=== PATIENT | male | born 1965 | race Caucasian/White ===

== ENCOUNTER → 2021-03-28 | Outpatient (CLI) | payer OTHER ==
--- NOTE | 2021-04-01 09:25 | CT ---
EXAMINATION TYPE: CT soft tissue neck wo con, CT neck chest w con DATE OF EXAM: 03/28/2021 HISTORY: Enlarged lymph nodes, left submandibular. COMPARISON: None CT DLP: 558.7 (accession [id number]), 1133.1 (accession [id number]) mGycm. Automated Exposure Control fo r Dose Reduction was Utilized. TECHNIQUE: CT scan of the neck is performed with IV Contrast, patient injected with 100 mL of Isovue M300, axial images are obtained, coronal and sagittal reformatted images are reviewed. FINDINGS: NECK: Airway: No gross abnormality seen. Parotid/submandibular glands: There is asymmetric nodular appearance of obstruction of the left subma ndibular gland measuring up to 1.9 x 2.2 cm, however this demonstrates similar density to the rest of the submandibular gland and may not represent discrete mass. Carotid/Vascular Structures: Patent. Lymph nodes: There is a necrotic lymph node posterior to the left angle of the mandible measuring 2.1 x 1.8 x 1.7 cm (7:55). There is also an adjacent enlarged lymph node immediately posterior to the ne crotic node measuring 1.3 x 0.9 cm (7:56). There is a right cervical lymph node anterior to the level of the carotid bifurcation measuring 1.5 x 1.6 cm (7:51). Right supraclavicular lymph node posterior to the internal jugular vein measures 1.7 x 1.2 cm (7:30). Osseous Structures: Degenerative changes of the cervical spine. No aggressive osseous destructive les ions appreciated. Other: Homogenous thyroid gland. CHEST: Soft tissue/mediastinum: No axillary, mediastinal, or hilar lymphadenopathy. Cardiovascular. Cardiac size normal. No pericardial effusion. Thoracic aorta normal in caliber. Lungs: Tracheobronchial tree is patent. No pleural effusion or pneumothorax. Mild centrilobular emphy sema at the apices. No pulmonary mass or suspicious pulmonary nodule. No acute focal airspace opacity . Upper abdomen: Hepatic cysts. Likely pancreatic calcifications which may represent sequela of chronic pancreatitis. Osseous structures: Degenerative changes of the thoracic spine. No aggressive osseous destructive les ions appreciated. IMPRESSION: 1. Necrotic lymph node posterior to the angle of the left mandible measuring 2.1 cm. Nonnecrotic kenny ateral cervical and right supraclavicular lymphadenopathy. Findings likely represent neoplastic proce ss. 2. Asymmetric nodular appearance of the left inferior submandibular gland without discrete mass. Fin dings may represent asymmetric normal submandibular tissue although could be further evaluated with u ltrasound.
== END | disposition home or self-care (01) ==
LOC: RADCTMAIN 17:40
PROVIDERS: ATTEND Internal Medicine Hematology & Oncology
DX: R91.8 Other nonspecific abnormal finding of lung field (principal); R59.0 Localized enlarged lymph nodes
CPT/HCPCS: 70490; 70491; 71260; Q9967

== ENCOUNTER → 2021-05-02 | Outpatient (CLI) | payer OTHER ==
--- NOTE | 2021-05-03 12:23 | PE ---
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 TECHNIQUE: Following the intravenous administration of 9.22 mCi of F-18 FDG, whole body images are p erformed from the skull base to the midthigh. Images are reviewed on the computer in the coronal, ax ial, and sagittal planes. Reconstructed rotating images are created on independent workstation and r eviewed on the computer. A localization and attenuation correction CT is performed in conjunction w ith the PET scan. Blood glucose level equals 99 SCAN: Initial Scan FINDINGS: SKULL BASE AND NECK: No suspicious hypermetabolic uptake inferior left submandibular gland. Abnormal peripheral hypermetabolic lesion with central necrosis posterior left lateral tongue base le anahy 2.6 x 2.6 cm axial image 43, max SUV is 4.97. There is abnormal hypermetabolic right-sided submandibular 1.7 cm mass axial image 46, max SUV is 6.1 1 corresponding to lesion just anterior to the jugular and carotid vessels. Mild uptake posterior tongue base bilaterally slightly more prominent on the left axial image 37, Max SUV is 3.85. Findings should be correlated with direct visualization. CHEST, MEDIASTINUM, AND HILAR REGION: No areas of abnormal hypermetabolic uptake. ABDOMEN AND PELVIS: Normal excretion. No areas of abnormal hypermetabolic uptake. OSSEOUS STRUCTURES: No areas of abnormal hypermetabolic uptake. OTHER CT: Mild to moderate underlying emphysematous changes redemonstrated. Liver is diffusely low-density suggesting diffuse fatty infiltration. Laminectomy defects with spinou s process resection lower lumbar spine. Facet arthropathy. IMPRESSION: Bilateral abnormal neck adenopathy confirmed. Possible subtle lesion left posterior tongu e base, correlate clinically with direct visualization. No additional hypermetabolic lesions to sugge st primary neoplasm or metastatic disease identified
== END | disposition home or self-care (01) ==
LOC: RADPETMAIN 11:19
PROVIDERS: ATTEND Otolaryngology
DX: C80.1 Malignant (primary) neoplasm, unspecified (principal); R59.0 Localized enlarged lymph nodes
CPT/HCPCS: 78815; A9552

== ENCOUNTER → 2021-05-02 | Outpatient (CLI) | payer OTHER | END | disposition home or self-care (01) | LOC: LABWHC1 14:35 | PROVIDERS: ATTEND Otolaryngology | DX: Z01.812 Encounter for preprocedural laboratory examination (principal); Z20.822 Contact with and (suspected) exposure to COVID-19 | CPT/HCPCS: U0003; C9803; U0005 ==

== ENCOUNTER → 2021-05-24 | Outpatient (CLI) | payer OTHER | END | disposition home or self-care (01) | LOC: LABWHC1 09:42 | PROVIDERS: ATTEND Otolaryngology | DX: Z01.812 Encounter for preprocedural laboratory examination (principal); U07.1 COVID-19 | CPT/HCPCS: U0003; U0005 ==

== ENCOUNTER → 2021-10-18 | Outpatient (CLI) | payer MEDICARE ==
--- NOTE | 2021-10-21 09:36 | PE ---
Nuclear medicine PET/CT HISTORY: C 76.0, subsequent Patient received 7.3 mCi F-18 FDG intravenously and delayed scanning was performed from the skull bas e to the mid thighs. A localization and attenuation correction CT scan was performed. Small field-of- view images obtained through the head and neck. Correlation to prior nuclear medicine PET/CT 05/02/2021 Average mediastinal uptake SUV 2.2, average liver uptake approximately SUV 2.9 Head and neck: There is no suspicious uptake. No evident adenopathy. No suspicious soft tissue mass. Subcutaneous soft tissues show some mild increased attenuation possibly due to posttreatment changes, difficult to exclude cellulitis. CHEST: There is no evident mediastinal, axillary, or hilar adenopathy. No evident lung mass, no pleur al or pericardial effusion. No suspicious uptake. ABDOMEN: Mild uptake noted within the region of the cecum, SUV 4.6, indeterminate. No retroperitoneal adenopathy or ascites. No evident adrenal mass. Atheromatous changes are present within the aorta. Osseous structures show no suspicious uptake. IMPRESSION: There is improvement in the appearance of the neck as compared to prior exam. Indetermina te uptake noted at the level of the cecum, if bowel surveillance has not been performed, then it shou ld be considered.
== END | disposition home or self-care (01) ==
LOC: RADPETMAIN 11:19
PROVIDERS: ATTEND Internal Medicine Hematology & Oncology
DX: C76.0 Malignant neoplasm of head, face and neck (principal)
CPT/HCPCS: 78815; A9552

== ENCOUNTER → 2022-03-24 | Outpatient (CLI) | payer OTHER ==
--- NOTE | 2022-03-24 15:01 | CT ---
EXAMINATION TYPE: CT neck chest w con DATE OF EXAM: 03/24/2022 COMPARISON: PET CT 10/18/2021 and 05/02/2021 HISTORY: 56-year-old male C7 6.0, head and neck CA TECHNIQUE: Contiguous axial scanning of the soft tissues of the neck and chest performed with IV Cont rast, patient injected with 100 mL of Isovue 300. Coronal/sagittal reconstructions performed. CT DLP: 687.4 mGycm Automated exposure control for dose reduction was used. FINDINGS: NECK: Visualized intracranial structures are, paranasal sinuses, mastoid air cells appear clear. Leftward nasal septal deviation. Nasopharynx is clear. There is new thickening of the epiglottis and mucosal space of the oropharynx and hypopharynx. Thicke ab of the aryepiglottic folds and false vocal folds with some distortion and asymmetric prominence along the right false cords, axial image 45. The true cords appear satisfactory. Asymmetric thickening of the left platysma with reticulations of the subcutaneous adipose layer. Mild thickening of the left submandibular gland noted. No recurrent lymphadenopathy seen. Bones: Moderate degenerative disc disease C6-C7. No osseous destructive process. CHEST: Heart normal size without pericardial effusion. Aorta normal caliber with conventional arch vessel branching anatomy. No thoracic lymphadenopathy by CT size criteria. Borderline caliber to the main right and left pulmonary arteries measuring up to 2.5 cm may reflect u nderlying pulmonary arterial hypertension. Moderate centrilobular emphysema. Dependent atelectasis along the posterior lower lobes. No consolida tion or pleural effusion. Visualized upper abdomen shows some fatty infiltration of the liver and hypodense hepatic lesions lupe suring up to 1.9 cm. Bones: Small endplate Schmorl's nodes mid to lower thoracic spine. IMPRESSION: NECK: 1. New thickening of the cervical mucosal space at the level of the oropharynx, hypopharynx, and uppe r glottis probably post radiation therapy changes. There is some asymmetric distortion and prominence along the right false cords probably also posttreatment change. Consider direct visualization and CT follow-up. 2. Additional posttreatment change along the left-sided neck soft tissues. No recurrent lymphadenopat hy. 3. There may be some asymmetric swelling of the left submandibular gland. This could be posttreatment change or sialoadenitis. Clinically correlate. CHEST: 4. COPD with moderate emphysema. No evidence for metastatic disease in the chest.
== END | disposition home or self-care (01) ==
LOC: RADCTMAIN 10:08
PROVIDERS: ATTEND Internal Medicine Hematology & Oncology
DX: C76.0 Malignant neoplasm of head, face and neck (principal); J43.9 Emphysema, unspecified
CPT/HCPCS: 70491; 71260; Q9967

== ENCOUNTER → 2022-10-10 | Outpatient (CLI) | payer OTHER ==
--- NOTE | 2022-10-10 15:05 | CT ---
EXAMINATION TYPE: CT neck chest w con DATE OF EXAM: 10/10/2022 COMPARISON: 03/24/22 HISTORY: malignant neoplasm of head, face, neck CT DLP: 704.4 mGycm CONTRAST: CT scan of the neck is performed with IV Contrast, patient injected with 100ml mL of Isovue 300. Contrast enhanced CT of the neck was performed from the skull base through the lung apices. AIRWAY: The supraglottic, glottic, and subglottic portions of the airway appear patent and free of mass. Posttreatment mucosal thickening persists although is improved relative to the prior examinatio n. SALIVARY GLANDS: The submandibular and parotid glands are free of mass or inflammatory process. THYROID GLAND: No nodules or masses seen. LYMPH NODES: No adenopathy seen greater than 1cm. OTHER: Vascular structures are patent. No significant degenerative change of the cervical spine. N o abscess seen. IMPRESSION: Posttreatment mucosal thickening within the supraglottic, glottic and subglottic portions of the airw ay improved from prior study. No new masses seen in evidence for adenopathy. EXAMINATION TYPE: CT neck chest w con DATE OF EXAM: 10/10/2022 COMPARISON: HISTORY: malignant neoplasm of head, face, neck CT DLP: 704.4 mGycm Automated exposure control for dose reduction was used. CONTRAST: CT scan of the chest is performed with IV Contrast, patient injected with 100ml mL of Isovue 300. FINDINGS: LUNGS: The lungs are grossly clear, there is no concerning parenchymal mass or nodule identified. M oderate COPD changes. There is no pleural effusion or pneumothorax seen. The tracheobronchial tree i s patent. MEDIASTINUM: There are no greater than 1 cm hilar or mediastinal lymph nodes. No pericardial effusi on is seen. Thoracic aorta is of normal caliber. The heart is not enlarged. UPPER ABDOMEN: Simple appearing cyst posterior segment right hepatic lobe that was seen previously. OTHER: No additional significant abnormality is seen. IMPRESSION: 1. No evidence metastatic disease to the chest. Overall stable exam.
== END | disposition home or self-care (01) ==
LOC: RADCTMAIN 14:06
PROVIDERS: ATTEND Internal Medicine Hematology & Oncology
DX: C76.0 Malignant neoplasm of head, face and neck (principal)
CPT/HCPCS: 70491; 71260; Q9967

== ENCOUNTER → 2023-04-13 | Outpatient (CLI) | payer OTHER ==
--- NOTE | 2023-04-14 13:04 | CT ---
EXAMINATION TYPE: CT neck chest w con DATE OF EXAM: 04/13/2023 COMPARISON: 10/10/2022 HISTORY: HX OF MALIGNANT NEOPLASM OF HEAD, FACE AND NECK CT DLP: 782.90 mGycm CONTRAST: Patient injected with 100ML mL of Isovue 300. TECHNIQUE: Axial images at 3 mm thick sections. Reconstructed images in the coronal plane and sagitt al plane are reviewed. FINDINGS: Limited CT sections are obtained the lung apices. Some emphysematous changes within the up per lung ram within the [id number]. CT neck: The torus tubarius and fossa of Rosenmuller are normal. 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 Para nasal sinuses and mastoid air cells are clear. Parotid glands appear normal and symmetrical. Submandibular glands, are normal. Parapharyngeal spac es are normal. No suspicious adenopathy is evident. The hypopharynx appears within normal limits. Vocal cord level appear symmetrical. Thyroid as visualized is normal. C6-7 disc space narrowing is present. Vertebral body alignment is preserved. Osseous structures are o therwise normal. CT CHEST: Emphysematous changes are present through the lung ram. No suspicious nodules or consoli dations are evident. Some mild compressive atelectasis is likely within the dependent lung bases. No enlarged mediastinal or hilar adenopathy is evident. Couple small lymph nodes are present. Ascend ing thoracic aorta is main pulmonary artery is 2.9 cm. Main pulmonary artery at the bifurcation is 2. 8 cm. Tracheobronchial tree within the field of view appears normal. Limited CT sections are obtained through the upper abdomen. There is a 1.6 cm cyst on the posterior r ight lobe liver. Additional smaller right upper lobe liver cysts appear to be present. IMPRESSION: 1. No suspicious change suggestive recurrent or metastatic head and neck cancer.
== END | disposition home or self-care (01) ==
LOC: RADCTMAIN 13:14
PROVIDERS: ATTEND Internal Medicine Hematology & Oncology
DX: C76.0 Malignant neoplasm of head, face and neck (principal)
CPT/HCPCS: 70491; 71260; Q9967

== ENCOUNTER → 2023-10-12 | Outpatient (CLI) | payer MEDICARE ==
--- NOTE | 2023-10-16 10:18 | CT ---
EXAMINATION TYPE: CT neck chest w con CT DLP: 1513 mGycm, Automated exposure control for dose reduction was used. DATE OF EXAM: 10/12/2023 3:44 PM COMPARISON: CT neck and chest 04/13/2023. CLINICAL INDICATION:Male, 58 years old with history of C76.0 MALIGNANT NEOPLASM OF HEAD, FACE AND NEC K;, f/u lymphoma TECHNIQUE: Standard enhanced CT of the neck and chest. Axial sections with coronal and sagittal refo rmats were obtained. Contrast used:100 mL of Isovue 300 with IV Contrast, (none if empty) Oral contrast used: (none if empty) FINDINGS: Brain: Visualized portions are grossly unremarkable. Orbits: Unremarkable Sinuses: Grossly unremarkable. Spaces of the neck: Clear and symmetric. Musculoskeletal: No acute osseous pathology. Lymph nodes: No pathologically enlarged lymph nodes are seen in the neck Vascular structures: Visualized major arteries are patent without evidence of aneurysm. Thoracic Inlet/airway: Airway is patent. The lung apices are clear. Soft tissues/Thyroid: Thyroid and remainder of the soft tissues are unremarkable. Other: none. CT CHEST: Emphysematous changes are present through the lung ram. No suspicious nodules or consolidations are evident. Some mild compressive atelectasis is likely with in the dependent lung bases. No enlarged mediastinal or hilar adenopathy is evident. Couple small lymph nodes are present. Ascending thoracic aorta and main pulmonary artery is 2.9 cm. Main pulmonary artery at the bifurcatio n is 2.8 cm. Tracheobronchial tree within the field of view appears normal. Limited CT sections are obtained through the upper abdomen. There is a 1.6 cm cyst on the posterior r ight lobe liver. Additional smaller right upper lobe liver cysts appear to be present. IMPRESSION: 1. No suspicious change suggestive recurrent or metastatic head and neck cancer.
== END | disposition home or self-care (01) ==
LOC: RADCTMAIN 14:55
PROVIDERS: ATTEND Internal Medicine Hematology & Oncology
DX: C76.0 Malignant neoplasm of head, face and neck (principal); J43.9 Emphysema, unspecified
CPT/HCPCS: 70491; 71260; Q9967

== ENCOUNTER → 2023-10-23 | Outpatient (CLI) | payer MEDICARE ==
--- NOTE | 2023-10-25 08:54 | MR ---
EXAMINATION TYPE: MR brain wo/w con DATE OF EXAM: 10/23/2023 8:40 PM CLINICAL INDICATION:Male, 58 years old with history of C76.0; PHH, Head and neck cancer. COMPARISON: 10/18/2021 TECHNIQUE: Multi planar, multi sequence imaging was performed through the brain including: T1, T2, In version recovery, susceptibility weighted imaging and gradient echo imaging and Diffusion weighted im aging. The patient was then given intravenous contrast and multi planar, T1 fat-saturation images wer e obtained. IV Contrast: 7.5 cc Gadavist FINDINGS: The baker-white junctions, ventricular system, basal cisterns appear unremarkable. Diffusion-weighted imaging shows no evidence of restricted diffusion to suggest acute/subacute infarct. Intracranial ar terial flow voids are maintained. Midline structures show no abnormality. Scattered foci of high T2 s ignal intensity are seen within the periventricular white matter. The susceptibility weighted images do not reveal any evidence for micro-hemorrhage. After administration of gadolinium, no abnormal enha ncement is seen. The bone marrow signal is within normal limits. Paranasal sinuses and mastoid air cells: No significant paranasal sinus disease. Visualized orbits: Orbital contents are intact. IMPRESSION: 1. No evidence of intracranial mass, acute/subacute infarct, or abnormal enhancement. 2. Minimal Nonspecific white matter changes, likely related to small vessel ischemic disease.
== END | disposition home or self-care (01) ==
LOC: RADMRIMAIN 20:15
PROVIDERS: ATTEND Internal Medicine Hematology & Oncology
DX: C76.0 Malignant neoplasm of head, face and neck (principal); R41.3 Other amnesia
CPT/HCPCS: 70553

== ENCOUNTER → 2024-04-11 | Outpatient (CLI) | payer MEDICARE ==
--- NOTE | 2024-04-11 15:48 | CT ---
EXAMINATION TYPE: CT neck chest w con DATE OF EXAM: 04/11/2024 3:35 PM COMPARISON: 10/12/2023 CLINICAL INDICATION: Male, 58 years old with history of C76.0 MALIGNANT NEOPLASM OF HEAD, FACE AND NE CK; PHH, lymphoma TECHNIQUE: CT scan of the neck is performed following with IV Contrast, patient injected with 100 mL of Isovue 3 00. Axial images are obtained, coronal and sagittal reformatted images are reviewed. CT DLP: 898.[address] CTDI: mGy Automated exposure control for dose reduction was used. FINDINGS: CT chest: There are stable mild emphysematous changes with an upper lobe predominance. There is a stable micron odule in the left upper lobe. No new or suspicious lung mass or nodule seen. There is no airspace consolidation or abnormal interstitial density. There is no pleural effusion or pneumothorax. Right basilar chest and abdomen is no mediastinal, hilar or axillary adenopathy. Limited scanning the upper abdomen reveals a stable liver cyst in the right lobe of the liver. No foc al osseous lesions are seen. CT neck soft tissues: FINDINGS: There are no supraclavicular lymph nodes. There is no thyroid mass or gross enlargement. The larynx including the cricoid, arytenoid and thyroid cartilages as well as the vocal cords are nor mal and symmetric. The tongue base, epiglottis, aryepiglottic folds, piriform sinuses and vallecula are normal and symme tric. The parotid and submandibular glands are normal and symmetric without focal mass or gross enlargement . There is no pharyngeal or parapharyngeal soft tissue mass or enhancement The great vessels of the neck are normal. There is no adenopathy within the neck. There is no soft tissue swelling, inflammation or abscess. IMPRESSION: No evidence of recurrent or metastatic disease within the neck or chest. [facility], , 04/11/2024 3:46 PM
== END | disposition home or self-care (01) ==
LOC: RADCTMAIN 14:32
PROVIDERS: ATTEND Internal Medicine Hematology & Oncology
DX: C76.0 Malignant neoplasm of head, face and neck (principal); R41.3 Other amnesia
CPT/HCPCS: 70491; 71260; Q9967

== ENCOUNTER → 2024-06-07 | Outpatient (CLI) | payer MEDICARE ==
--- NOTE | 2024-06-07 11:58 | FL ---
Exam Date: 06/07/2024 11:39 AM. Modified barium swallow for dysphagia. Consistencies administered: Various consistency of barium. Fluoro time: 1 min 42 sec No images were sent to PACS. Please see speech pathology report. DAP: not reported mGym2 Gycm2 [facility], , 06/07/2024 11:55 AM
== END | disposition home or self-care (01) ==
LOC: RADFLMAIN 10:36
PROVIDERS: ATTEND Radiology Radiation Oncology
DX: C77.0 Secondary and unspecified malignant neoplasm of lymph nodes of head, face and neck (principal); C80.1 Malignant (primary) neoplasm, unspecified; Z08 Encounter for follow-up examination after completed treatment for malignant neoplasm; K11.1 Hypertrophy of salivary gland; R13.10 Dysphagia, unspecified; J35.1 Hypertrophy of tonsils; Z92.3 Personal history of irradiation
CPT/HCPCS: 74230